=== PATIENT | female | born 1965 | race Caucasian/White ===

== ENCOUNTER 2017-06-04 09:07 | Day surgery (SDC) | payer MEDICAID ==
[~2017-06-04 09:07] MED LIST: ACETAMINOPHEN 1,000 MG/100 ML BTL IV ONE; FAMOTIDINE 20MG TABLET PO ONE; MECLIZINE 25 MG TABLET PO ONE; METOCLOPRAMIDE 10 MG TABLET PO ONE
[2017-06-04] MEDS ORDERED: MECLIZINE 25 MG TABLET PO ONE (09:08)
[2017-06-04] MEDS ORDERED: METOCLOPRAMIDE 10 MG TABLET PO ONE (09:08)
[2017-06-04] MEDS ORDERED: FAMOTIDINE 20MG TABLET PO ONE (09:08)
[2017-06-04] MEDS ORDERED: BUPIVACAINE 0.25% W/EPI MPF 30ML VIAL IVP ONE (09:08)
--- NOTE | 2017-06-05 12:40 | Operative Note ---
DATE OF SURGERY: 06/04/2017 Surgeon: Ethan Rand DO PREOPERATIVE DIAGNOSES: 1. Torn medial meniscus of the left knee. 2. Chondromalacia of the left knee. POSTOPERATIVE DIAGNOSES: 1. Torn medial meniscus, left knee. 2. 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 OPERATION: 1. Arthroscopic partial medial meniscectomy, left knee. 2. Arthroscopic chondroplasty of patella and medial femoral condyle, left knee. DESCRIPTION OF PROCEDURE: This 51-year-old female was taken to the operating room and placed in the supine position on the operating room table where general anesthesia was induced. The left lower extremity was elevated. It was exsanguinated and the tourniquet inflated to 300 mmHg. Arthroscopic knee multani applied. Left knee prepped with Hibiclens and draped in the usual sterile fashion. An inferolateral portal was established for the 4 mm arthroscope, and initial evaluation of the joint demonstrated marked synovitis present throughout the knee but it was very hyperemic. We did not resect this synovium. It represented almost all the synovial wall. The patella demonstrated grade 2 chondromalacia and utilizing the rotating shaver, chondroplasty was performed to stabilize the articular cartilage there. There were some grade 2 changes noted in the center of the trochlea a distance of at least 1 cm in width but it was not unstable and it was not further disturbed. The medial compartment was entered, and a tear of the medial meniscus was present. A radial tear of the posterior horn at about the 12-o'clock position ran to the meniscal synovial junction. We used the basket forceps and rotating shaver to resect back to the apex of the tear and then tapered in each direction to perform a smooth contoured surface which was not unstable after re-probing. Advanced grade 2 changes of the medial femoral condyle were present. The entire weightbearing surface was affected. The joint was copiously irrigated and suctioned to remove all chips of meniscal tissue from the joint. The intracondylar notch was examined and again more synovitis was present but not further disturbed. The lateral compartment was entered. No evidence of lateral meniscus tear or articular cartilage pathology was identified. The joint was copiously irrigated and suctioned. All instruments were removed. The portals infiltrated with 0.25% Marcaine with epinephrine. Sterile dressings applied after the wounds had been closed with 4-0 nylon suture. The patient was taken to the recovery room in satisfactory condition. GROSS PATHOLOGY: The patient demonstrated grade 2 chondromalacia of the patella and trochlea, grade 2 changes noted in the medial femoral condyle as well. A large radial tear of the medial meniscus was present as described. MTDD
== END 2017-06-04 12:25 | disposition home or self-care (01) ==
LOC: SUR 09:07
PROVIDERS: ATTEND Orthopaedic Surgery
DX: M22.42 Chondromalacia patellae, left knee (principal); M94.262 Chondromalacia, left knee; I10 Essential (primary) hypertension

== ENCOUNTER 2018-10-18 23:10 | Emergency (ER) | payer SELFPAY ==
[2018-10-18] MEDS ORDERED: KETOROLAC 30 MG/ML VIAL IVP ONE (23:24)
[2018-10-18] MEDS ORDERED: ONDANSETRON HCL IV 4 MG/2 ML VIAL IVP ONE (23:24)
--- NOTE | 2018-10-18 23:29 | Emergency Department Record ---
History of Present Illness - General Chief Complaint: Abdominal Pain Stated Complaint: RIGHT SIDE PAIN Time Seen by Provider: 10/18/18 23:24 Source: Patient Mode of Arrival: Ambulatory Limitations: No limitations - History of Present Illness Initial Comments: 52 yo female presents to ED for evaluation of right sided low back pain that radiates to the right lower quadrant on examination. Patient reports that her symptoms began 2 hours ago, denies fevers, chills, or recent illness. Patient reports that her pain symptoms are intermittent in nature, denies dysuria/hematuria symptoms. Patient denies change in stools. Patient is s/p cholecystectomy. MD Complaint: Abdominal pain, Flank pain Onset/Timin -: Minutes(s) Location: RLQ Severity: Moderate Severity scale (1-10): 4 Quality: Aching, Cramping Consistency: Constant Improves With: Nothing Worsens With: Nothing Associated Symptoms: Denies other symptoms - Related Data Patient : No Hx Age of Menopause: 44 Home Medications Medication Instructions Recorded Confirmed Last Taken Meloxicam [Mobic] 15 mg PO DAILY 10/18/18 10/18/18 1 Day Ago ~10/17/18 Previous Rx's Medication Instructions Recorded Hydrocodone/APAP 5/325Mg [Lorado 1 each PO Q6H PRN #10 tab 10/19/18 5Mg/325Mg] Ibuprofen [Motrin 600Mg] 600 mg PO Q6H #30 tablet 10/19/18 Tamsulosin HCl [Flomax] 0.4 mg PO DAILY #14 cap.er.24h 10/19/18 Allergies Allergy/AdvReac Type Severity Reaction Status Date / Time No Known Drug Allergies Allergy Unverified 09/03/18 08:38 Travel Screening - Travel/Exposure Within Last 30 Days Have you traveled within the last 30 days?: No - Travel/Exposure Within Last Year Have you traveled outside the [place] in the last year?: No - Additonal Travel Details Have you been exposed to anyone with a communicable illness?: No - Travel Symptoms Symptom Screening: None Review of Systems Constitutional: Denies: Chills, Fever, Malaise, Night sweats Eyes: Denies: Eye discharge, Eye pain ENT: Denies: Congestion, Ear pain, Epistaxis Respiratory: Denies: Cough, Dyspnea Cardiovascular: Denies: Chest pain, Dyspnea on exertion Endocrine: Denies: Fatigue, Heat or cold intolerance Gastrointestinal: Reports: Abdominal pain, Nausea, Vomiting (x 1) Genitourinary: Denies: Hematuria, Incontinence, Retention Musculoskeletal: Reports: Back pain. Denies: Arthralgia Skin: Denies: Bruising, Change in color Neurological: Denies: Abnormal gait, Confusion, Seizure Psychiatric: Denies: Anxiety Hematological/Lymphatic: Denies: Anemia, Blood Clots Past Medical History - SOCIAL HISTORY Smoking Status: Never smoker Alcohol Use: None Drug Use: None - RESPIRATORY Hx Respiratory Disorders: No - CARDIOVASCULAR Hx Cardio Disorders: Yes Hx Hypertension: Yes - NEURO Hx Neuro Disorders: No - GI Hx GI Disorders: No - Hx Genitourinary Disorders: No - ENDOCRINE Hx Endocrine Disorders: No - MUSCULOSKELETAL Hx Musculoskeletal Disorders: Yes Hx Arthritis: Yes - PSYCH Hx Psych Problems: No - HEMATOLOGY/ONCOLOGY Hx Hematology/Oncology Disorders: No Family Medical History Any Significant Family History?: Yes Hx Cancer: Mother Hx Depression: Father, Mother Hx Diabetes: Mother Hx Heart Disease: Father, Mother Hx HTN: Father, Mother Hx Kidney Disease: Mother Hx Stroke: Mother Physical Exam - General General Appearance: Alert, Oriented x3, Cooperative, Mild distress Limitations: No limitations - Head Head exam: Atraumatic, Normocephalic, Normal inspection Head exam detail: negative: Abrasion, Contusion, Ascencio's sign, General tenderness, Hematoma, Laceration - Eye Eye exam: Normal appearance. negative: Conjunctival injection, Periorbital swelling, Periorbital tenderness, Scleral icterus - ENT Ear exam: negative: Auricular hematoma, Auricular trauma Nasal Exam: negative: Active bleeding, Discharge, Dried blood, Foreign body Mouth exam: negative: Drooling, Laceration, Muffled voice, Tongue elevation - Neck Neck exam: Normal inspection. negative: Meningismus, Tenderness - Respiratory Respiratory exam: Normal lung sounds bilaterally. negative: Rales, Respiratory distress, Rhonchi, Stridor - Cardiovascular Cardiovascular Exam: Regular rate, Normal rhythm, Normal heart sounds - GI/Abdominal GI/Abdominal exam: Soft, Tenderness. negative: Rebound, Rigid - Rectal Rectal exam: Deferred - exam: Deferred - Extremities Extremities exam: Normal inspection. negative: Pedal edema, Tenderness - Back Back exam: Reports: CVA tenderness (R). Denies: CVA tenderness (L) - Neurological Neurological exam: Alert, Normal gait, Oriented X3 - Psychiatric Psychiatric exam: Normal affect, Normal mood - Skin Skin exam: Normal color. negative: Abrasion Type of lesion: negative: abrasion Course Vital Signs 10/18/18 23:14 Temperature 97.8 F Pulse Rate 64 Respiratory 18 Rate Blood Pressure 143/104 Pulse Ox 97 - Reevaluation(s) Reevaluation #1: 10/19/18 00:20 Laboratory studies were reviewed and appear grossly unremarkable for an acute process except for the following: Urinalysis:: 21-35 RBCs Patient is back from CT imaging, resting more comfortably at this time. Reevaluation #2: 10/19/18 00:33 CT Abdomen and Pelvis: Obstructing 3-4 mm cacluclus proximal right ureter. Left adrenal nodule Recommend follow-up MRI in 3-6 months for further evaluation. Patient reports that her pain symptoms are greatly improved Will treat with Flomax, Motrin 600 mg, and Lorado as needed with instructions to follow-up with Dr. Lin in the [facility] this week. Patient appears stable for discharge at this time. Medical Decision Making - Lab Data Result diagrams: 10/18/18 23:40 10/18/18 23:40 Disposition Disposition: Discharge Clinical Impression: Kidney stone on right side Disposition: Home, Self-Care Condition: (2) Stable Instructions: Kidney Stones (ED) Additional Instructions: Return to ED if your symptoms worsen or if you have any concerns. Flomax, Motrin, and Lorado as directed. Follow-up with Dr. Lin in 3-5 days as directed in the [facility] as directed. Follow-up MRI recommended for adrenal nodule, recommend MRI imaging in 3-6 months. Follow-up with your PCP for further evaluation of this nodule in 1 week. Prescriptions: Tamsulosin HCl [Flomax] 0.4 mg PO DAILY #14 cap.er.24h Ibuprofen [Motrin 600Mg] 600 mg PO Q6H #30 tablet Hydrocodone/APAP 5/325Mg [[place] 5Mg/325Mg] 1 each PO Q6H PRN #10 tab PRN Reason: Pain - Severe (8-10) Referrals: Rodolfo Lin M.D. [MEDICAL DOCTOR] - [facility] [Provider Group] Forms: Patient Portal Access Time of Disposition: 00:36 Quality - Quality Measures Quality Measures: N/A - Blood Pressure Screening Does Patient Have Any of the Following: Active Dx of HTN Blood Pressure Classification: Hypertensive Reading Systolic Measurement: 143 Diastolic Measurement: 104 Screening for High Blood Pressure: Patient Exclusion, Hx of HTN [[id number]]
[2018-10-18] MEDS ORDERED: 0.9 % SODIUM CHLORIDE 1000ML 1,000 ML IV SCH (23:30)
[2018-10-18 23:46] LABS: BASO % 0.3 % (0-6); EOS % 0.8 % (0-6); HEMATOCRIT 44.4 % (35.0-47.0); HEMOGLOBIN 14.7 gm/dl (11.6-16.0); LYMPH % 16.7 % (16-45); MEAN CELL VOLUME 88.8 fl (81-97); MEAN CORPUSCULAR HEMOGLOBIN 29.4 pg (27-33); MEAN CORPUSCULAR HGB CONC 33.1 g/dl (32-36); MEAN PLATELET VOLUME 9.5 fl (7.4-10.4); MONO % 6.2 % (0-9); PLATELET COUNT 219 K/uL (130-400); RED CELL DISTRIBUTION WIDTH 13.2 % (11.5-14.5); URINE APPEARANCE CLEAR; URINE BILIRUBIN NEGATIVE (NEGATIVE); URINE BLOOD LARGE (NEGATIVE); URINE COLOR YELLOW; URINE GLUCOSE (UA) NEGATIVE (NEGATIVE); URINE KETONE NEGATIVE (NEGATIVE); URINE LEUKOCYTE ESTERASE NEGATIVE (NEGATIVE); URINE NITRITE NEGATIVE (NEGATIVE); URINE UROBILINOGEN 0.2 E.U./dL (0.20 - 1.00); WHITE BLOOD COUNT W/O DIFF 10.4 K/uL (4.2-12.2)
[2018-10-18 23:52] LABS: URINE EPITHELIAL CELLS NONE SEEN (FEW); URINE RBC 21 - 35 (NONE SEEN); URINE WBC NONE SEEN (0-2/hpf)
[2018-10-18 23:53] LABS: URINE BACTERIA NONE SEEN
[2018-10-18 23:56] LABS: BLOOD UREA NITROGEN 16 mg/dL (6-20); CREATININE 0.7 mg/dL (0.5-0.9); EST GLOMERULAR FILTRATION RATE > 60 mL/min
[2018-10-18 23:57] LABS: LIPASE 27 U/L (13-60); TOTAL PROTEIN 6.8 g/dL (6.6-8.7)
[2018-10-18 23:59] LABS: GLUCOSE,RANDOM 135 mg/dL (74-109)
[2018-10-19 00:02] LABS: ALKALINE PHOSPHATASE 93 U/L (35-104)
[2018-10-19 00:03] LABS: ALBUMIN 4.5 g/dL (4.0-5.0); ALT/SGPT 19 U/L (<33); AST/SGOT 19 U/L (10.0-35.0)
--- NOTE | 2018-10-20 05:40 | CT SCAN REPORT ---
EXAM: CT SCAN ABDOMEN/PELVIS WO CONTRAST HISTORY: RIGHT-SIDED ABDOMINAL PAIN RADIATING TO BACK FOR THREE HOURS. PRIOR CHOLECYSTECTOMY. TECHNIQUE: Helical CT examination of the abdomen and pelvis is performed without oral or intravenous contrast administration. Lack of oral and IV contrast utilization limits evaluation of bowel and solid viscera. COMPARISON: None. FINDINGS: There is mild dependent atelectasis within the right lung base. The visualized lung bases are otherwise clear. No pleural or pericardial effusion. The heart is not enlarged. The liver, spleen, pancreas, and right adrenal gland are normal in appearance. There is an indeterminate left adrenal gland mass measuring 1.3 x 1.8 cm. This has a density of 29 Hounsfield units. Statistically, this is likely a benign adenoma. If clinically warranted, this could be further evaluated with MRI examination. The gallbladder is surgically absent. No biliary ductal dilatation is seen. The kidneys are normal in position and smoothly marginated. No nephrolithiasis nor definite renal mass. There is mild right hydroureteronephrosis to the level of the proximal-mid ureter where there is an obstructing calculus. This calculus measures 2.9 mm in diameter. There is associated periureteral fat stranding. The left renal collecting system is normal in appearance. No retroperitoneal lymphadenopathy. There is borderline enlarged mesenteric lymph node right of midline at the mid abdominal level. There are additional nonenlarged mesenteric lymph nodes in this region. These are nonspecific but likely reactive/inflammatory. No pelvic mass, lymphadenopathy, or free pelvic fluid. No intrinsic urinary bladder abnormality. The uterus is in the midline. The ovaries are not enlarged. No bowel dilatation nor bowel wall thickening. The appendix is visualized and normal in appearance. No free intraperitoneal air. There is a tiny fat-filled umbilical hernia. An additional tiny fat-filled ventral wall hernia approximately 15 mm superior to the umbilicus is suggested. No lytic or blastic bone lesion. IMPRESSION: 1. A 2.9 MM OBSTRUCTING CALCULUS WITHIN THE PROXIMAL-MID RIGHT URETER CAUSING MILD UPSTREAM COLLECTING SYSTEM DILATATION AND PERIURETERAL FAT STRANDING. 2. SMALL LEFT ADRENAL MASS. THIS IS INDETERMINATE ON THIS EXAMINATION. STATISTICALLY, THIS IS LIKELY AN ADENOMA. IF CLINICALLY WARRANTED, THIS COULD BE FURTHER CHARACTERIZED WITH MRI EXAMINATION. 3. STATUS POST CHOLECYSTECTOMY. 4. NORMAL APPENDIX. 5. THERE ARE SEVERAL LYMPH NODES WITHIN THE RIGHT LOWER QUADRANT MESENTERY ONE OF WHICH IS BORDERLINE ENLARGED. THESE ARE NONSPECIFIC BUT LIKELY REACTIVE. JOB NUMBER: [id number] [facility]
== END 2018-10-19 01:06 | disposition home or self-care (01) ==
LOC: ER 23:10
DX: N20.1 Calculus of ureter (principal); E27.9 Disorder of adrenal gland, unspecified; I10 Essential (primary) hypertension
CPT/HCPCS: 74176; 80053; 81001; 83690; 85025; 96361; 96374; 96375; 99284; J1885; J2405; J7030